=== PATIENT | female | born 1950 | race Asian ===

== ENCOUNTER 2017-07-28 12:40 | Emergency (ER) | payer OTHER ==
[2017-07-28] MEDS: KETOROLAC 30 MG INJ IV (13:43)
[2017-07-28 14:09] LABS: ADD MAN DIFF? NO
[2017-07-28] MEDS: SODIUM CHLORIDE 0.9% 1L BAG IV* (14:15)
[2017-07-28] MEDS: CEFTRIAXONE 1 GM/50 ML (PMX) 50 ML IVPB (14:15)
[2017-07-28 14:23] LABS: WHITE BLOOD COUNT 14.8 10^3/ul (4.8-10.8)
[2017-07-28 14:23] LABS: HEMATOCRIT 29.4 % (37.0-47.0); HEMOGLOBIN 9.9 g/dl (12.0-16.0); LYMPHOCYTES % 5.5 % (15.0-51.0); MEAN CORPUSCULAR HEMOGLOBIN 29.3 pg (29.0-33.0); MEAN CORPUSCULAR HGB CONC 33.7 g/dl (32.0-37.0); MEAN PLATELET VOLUME 9.1 fl (7.4-10.4); NEUTROPHILS % 84.6 % (39.0-77.0); PLATELET COUNT 182 10^3/UL (140-415); RED BLOOD COUNT 3.38 10^6/ul (4.20-5.40); RED CELL DISTRIBUTION WIDTH 12.3 % (11.5-14.5)
[2017-07-28 14:24] LABS: BASOPHILS % 0.3 % (0.0-2.0); MONOCYTES % 9.1 % (0.0-11.0)
[2017-07-28 14:27] LABS: ADD UMIC YES; UR ASCORBIC ACID NEGATIVE (NEGATIVE); UR BACTERIA FEW /HPF (NONE SEEN); UR BILIRUBIN (Dip) NEGATIVE (NEGATIVE); UR BLOOD (Dip) 1+ mg/dL (NEGATIVE); UR CLARITY SLIGHTLY CLOUDY (CLEAR); UR COLOR YELLOW (YELLOW); UR GLUCOSE (Dip) 3+ mg/dL (NEGATIVE); UR KETONES (Dip) NEGATIVE (NEGATIVE); UR LEUKOCYTE ESTERASE (Dip) TRACE Leu/ul (NEGATIVE); UR NITRITE (Dip) NEGATIVE (NEGATIVE); UR RBC 3 /HPF (0-5); UR SPECIFIC GRAVITY (Dip) 1.013 (1.003-1.030); UR TOTAL PROTEIN (Dip) 2+ mg/dl (NEGATIVE); UR UROBILINOGEN (Dip) NEGATIVE (NEGATIVE); UR WBC 46 /HPF (0-5)
[2017-07-28 14:35] LABS: ALANINE AMINOTRANSFERASE 25 IU/L (13-69); ALBUMIN 3.6 g/dl (3.3-4.9); ALKALINE PHOSPHATASE 93 IU/L (42-121); ANION GAP 14 (8-16); ASPARTATE AMINO TRANSFERASE 19 IU/L (15-46); BILIRUBIN,INDIRECT 0.6 mg/dl (0-1.1); BILIRUBIN,TOTAL 0.6 mg/dl (0.2-1.3); BLOOD UREA NITROGEN 23 mg/dl (7-20); CALCIUM 8.3 mg/dl (8.4-10.2); CARBON DIOXIDE 24 mmol/L (21-31); CHLORIDE 96 mmol/L (97-110); CREATININE 0.94 mg/dl (0.44-1.00); GLUCOSE 294 mg/dl (70-220); POTASSIUM 4.3 mmol/L (3.5-5.1); SODIUM 130 mmol/L (135-144); TOTAL PROTEIN 7.2 g/dl (6.1-8.1)
[2017-07-28 14:36] LABS: INR 1.07; PT RATIO 1.1
[2017-07-28 14:36] LABS: LACTIC ACID 2.6 mmol/L (0.5-2.0)
[2017-07-28 14:37] LABS: PARTIAL THROMBOPLASTIN TIME 33.3 Sec (25.0-35.0)
[2017-07-28] MEDS: ACETAMINOPHEN 500 MG TAB PO (16:42)
== END 2017-07-28 18:26 | disposition home or self-care (01) ==
LOC: E/R 12:40
DX: N39.0 Urinary tract infection, site not specified (principal); R65.20 Severe sepsis without septic shock; A41.9 Sepsis, unspecified organism
CPT/HCPCS: 36415; 71045; 80053; 81001; 83605; 85025; 85610; 85730; 87040; 87086; 96374; 99284-25

== ENCOUNTER 2018-07-11 22:54 | Inpatient (IN) | payer OTHER ==
[2018-07-12] MEDS ORDERED: GABAPENTIN 300 MG CAP PO
[2018-07-12] MEDS ORDERED: HYDROCODONE/APAP (5/325) TAB PO
[2018-07-12] MEDS ORDERED: DEXTROSE 50% 50 ML SYRINGE IV ×2 (01:00)
[2018-07-12] MEDS ORDERED: GLUCOSE GEL 15 GRAM TUBE BUCCAL (01:00)
[2018-07-12] MEDS ORDERED: GLUCOSE GEL 15 GRAM TUBE PO ×2 (01:00)
[2018-07-12] MEDS ORDERED: GLUCAGON 1 MG INJ IM (01:00)
[2018-07-12] MEDS: ACCU-CHEK XX (02:00)
[2018-07-12] MEDS: PANTOPRAZOLE (EC) 40 MG TAB PO (06:13)
[2018-07-12] MEDS: ONDANSETRON 4 MG INJ IV ×2 (06:13→15:55)
[2018-07-12] MEDS: ACETAMINOPHEN 325 MG TAB PO ×2 (06:14→15:34)
[2018-07-12] MEDS: PIPER-TAZO 3.375 GM IV (PMX) 100 ML IVPB ×3 (06:14→21:13)
[2018-07-12] MEDS: INSULIN ASPART [NOVOLOG] 3 ML PEN SC ×4 (08:00→21:07)
[2018-07-12 08:36] LABS: ADD MAN DIFF? NO
[2018-07-12 08:45] LABS: ABNORMAL IP MESSAGE 1; BASOPHIL # 0.1 10^3/ul (0.0-0.1); BASOPHILS % 0.2 % (0.0-2.0); HEMATOCRIT 26.8 % (37.0-47.0); LYMPHOCYTES # 0.8 10^3/ul (0.8-2.9); LYMPHOCYTES % 3.3 % (15.0-51.0); MEAN CORPUSCULAR HGB CONC 33.6 g/dl (32.0-37.0); MEAN CORPUSCULAR VOLUME 86.5 fl (82.0-101.0); MEAN PLATELET VOLUME 9.2 fl (7.4-10.4); MONOCYTE # 1.9 10^3/ul (0.3-0.9); MONOCYTES % 7.7 % (0.0-11.0); PLATELET COUNT 240 10^3/UL (140-415); RED CELL DISTRIBUTION WIDTH 12.8 % (11.5-14.5)
[2018-07-12 08:47] LABS: POSITIVE DIFF @See below
[2018-07-12 08:49] LABS: LACTIC ACID 1.6 mmol/L (0.5-2.0)
[2018-07-12 08:53] LABS: ANION GAP 9 (5-13); BLOOD UREA NITROGEN 21 mg/dl (7-20); CALCIUM 8.2 mg/dl (8.4-10.2); CARBON DIOXIDE 24 mmol/L (21-31); CHLORIDE 104 mmol/L (97-110); CREATININE 1.09 mg/dl (0.44-1.00); Estimated GFR 50 mL/min (>60); GLUCOSE 240 mg/dl (70-220); SODIUM 137 mmol/L (135-144)
[2018-07-12] MEDS: METOPROLOL 50 MG TAB PO (09:04)
[2018-07-12] MEDS: FISH OIL 1,000 MG CAP PO (09:05)
[2018-07-12] MEDS: FUROSEMIDE 20 MG TAB PO (09:05)
[2018-07-12] MEDS: ASPIRIN 81 MG TAB PO (09:05)
[2018-07-12] MEDS: LOSARTAN 50 MG TAB PO (09:05)
[2018-07-12] MEDS: SOD CHLORIDE 0.9% 1,000 ML IV (10:47)
[2018-07-12] MEDS ORDERED: ASPIRIN (EC) 81 MG TAB PO (12:00)
[2018-07-12 12:28] LABS: ADD UMIC YES; UR ASCORBIC ACID NEGATIVE (NEGATIVE); UR BACTERIA FEW /HPF (NONE SEEN); UR BILIRUBIN (Dip) NEGATIVE (NEGATIVE); UR BLOOD (Dip) NEGATIVE (NEGATIVE); UR CLARITY TURBID (CLEAR); UR COLOR STRAW (YELLOW); UR GLUCOSE (Dip) NEGATIVE (NEGATIVE); UR KETONES (Dip) NEGATIVE (NEGATIVE); UR LEUKOCYTE ESTERASE (Dip) NEGATIVE Leu/ul (NEGATIVE); UR NITRITE (Dip) NEGATIVE (NEGATIVE); UR RBC 5 /HPF (0-5); UR RENAL EPITHELIAL CELL FEW /HPF (NONE SEEN); UR SQUAMOUS EPITHELIAL CELL FEW /HPF (FEW); UR TOTAL PROTEIN (Dip) NEGATIVE (NEGATIVE); UR UROBILINOGEN (Dip) NEGATIVE (NEGATIVE); UR WBC 53 /HPF (0-5)
[2018-07-12] MEDS: ASPIRIN (EC) 81 MG TAB PO (13:07)
[2018-07-12 18:35] LABS: MAGNESIUM 1.7 mg/dl (1.7-2.5)
[2018-07-12 18:36] LABS: ANION GAP 8 (5-13); BLOOD UREA NITROGEN 22 mg/dl (7-20); CALCIUM 8.4 mg/dl (8.4-10.2); CARBON DIOXIDE 23 mmol/L (21-31); CHLORIDE 102 mmol/L (97-110); CREATININE 1.22 mg/dl (0.44-1.00); Estimated GFR 44 mL/min (>60); GLUCOSE 195 mg/dl (70-220); POTASSIUM 3.8 mmol/L (3.5-5.1); SODIUM 133 mmol/L (135-144)
[2018-07-12 18:44] LABS: PHOSPHORUS 2.4 mg/dl (2.5-4.9)
[2018-07-12] MEDS: ALBUTEROL/IPRATROPIUM (NEB) 3 ML AMP HHN (20:25)
[2018-07-12] MEDS: POTASSIUM CHLORIDE (SR) 20 MEQ TAB PO (20:40)
[2018-07-12] MEDS: ATORVASTATIN 20 MG TAB PO ×2 (20:40→20:41)
[2018-07-12] MEDS: GABAPENTIN 100 MG CAP PO (20:40)
[2018-07-12] MEDS: LATANOPROST 0.005% 2.5 ML OPH BOTH EYES ×2 (20:48→21:00)
[2018-07-12] MEDS: INSULIN GLARGINE [LANTus] (100 UNITS/ML) SYG SC (21:07)
[2018-07-12] MEDS: MAGNESIUM SULFATE 2 GM/50 ML 50 ML IVPB (21:30)
[2018-07-13] MEDS: ACETAMINOPHEN 325 MG TAB PO (02:48)
[2018-07-13] MEDS: ACCU-CHEK XX (02:51)
[2018-07-13] MEDS: PANTOPRAZOLE (EC) 40 MG TAB PO (05:52)
[2018-07-13] MEDS: PIPER-TAZO 3.375 GM IV (PMX) 100 ML IVPB ×3 (05:52→21:38)
[2018-07-13] MEDS: ASPIRIN (EC) 81 MG TAB PO (08:00)
[2018-07-13] MEDS: INSULIN ASPART [NOVOLOG] 3 ML PEN SC ×5 (08:00→21:01)
[2018-07-13] MEDS: LOSARTAN 50 MG TAB PO (08:01)
[2018-07-13] MEDS: METOPROLOL 50 MG TAB PO ×2 (08:01→20:48)
[2018-07-13] MEDS: ALBUTEROL/IPRATROPIUM (NEB) 3 ML AMP HHN ×4 (08:43→21:52)
[2018-07-13] MEDS: ASPIRIN 81 MG TAB PO (08:43)
[2018-07-13 11:39] LABS: ADD MAN DIFF? NO
[2018-07-13 11:45] LABS: ABNORMAL IP MESSAGE 1; BASOPHIL # 0.1 10^3/ul (0.0-0.1); BASOPHILS % 0.4 % (0.0-2.0); EOSINOPHILS % 0.2 % (0.0-7.0); HEMOGLOBIN 8.5 g/dl (12.0-16.0); LYMPHOCYTES # 1.6 10^3/ul (0.8-2.9); LYMPHOCYTES % 7.4 % (15.0-51.0); MEAN CORPUSCULAR HGB CONC 32.7 g/dl (32.0-37.0); MEAN CORPUSCULAR VOLUME 88.7 fl (82.0-101.0); MEAN PLATELET VOLUME 9.3 fl (7.4-10.4); MONOCYTE # 1.5 10^3/ul (0.3-0.9); MONOCYTES % 7.1 % (0.0-11.0); NEUTROPHIL # 17.9 10^3/ul (1.6-7.5); NEUTROPHILS % 83.7 % (39.0-77.0); PLATELET COUNT 223 10^3/UL (140-415); RED BLOOD COUNT 2.93 10^6/ul (4.20-5.40)
[2018-07-13 11:45] LABS: WHITE BLOOD COUNT 21.4 10^3/ul (4.8-10.8)
[2018-07-13 11:46] LABS: POSITIVE DIFF @See below
[2018-07-13 12:02] LABS: ANION GAP 8 (5-13); BLOOD UREA NITROGEN 19 mg/dl (7-20); CALCIUM 8.3 mg/dl (8.4-10.2); CARBON DIOXIDE 23 mmol/L (21-31); CHLORIDE 104 mmol/L (97-110); CREATININE 1.07 mg/dl (0.44-1.00); Estimated GFR 51 mL/min (>60); GLUCOSE 223 mg/dl (70-220); POTASSIUM 4.4 mmol/L (3.5-5.1); SODIUM 135 mmol/L (135-144)
[2018-07-13] MEDS: FUROSEMIDE 20 MG INJ IV (14:56)
[2018-07-13] MEDS ORDERED: DILTIAZEM 25 MG INJ IV (19:00)
[2018-07-13] MEDS: DIGOXIN 500 MCG INJ IV (20:06)
[2018-07-13] MEDS: ATORVASTATIN 20 MG TAB PO ×2 (20:47)
[2018-07-13] MEDS: LATANOPROST 0.005% 2.5 ML OPH BOTH EYES ×2 (20:47→20:48)
[2018-07-13] MEDS: GABAPENTIN 100 MG CAP PO (20:48)
[2018-07-13] MEDS: INSULIN GLARGINE [LANTus] (100 UNITS/ML) SYG SC (21:01)
[2018-07-13] MEDS: ENOXAPARIN 60 MG/0.6 ML SYG SC (21:02)
[2018-07-14] MEDS: DIGOXIN 500 MCG INJ IV (01:43)
[2018-07-14] MEDS ORDERED: ACCU-CHEK XX (02:00)
[2018-07-14] MEDS: ACCU-CHEK XX (02:50)
[2018-07-14] MEDS: PANTOPRAZOLE (EC) 40 MG TAB PO (05:30)
[2018-07-14] MEDS: PIPER-TAZO 3.375 GM IV (PMX) 100 ML IVPB ×3 (05:30→21:20)
[2018-07-14 06:28] LABS: ADD MAN DIFF? NO
[2018-07-14 06:37] LABS: WHITE BLOOD COUNT 15.6 10^3/ul (4.8-10.8)
[2018-07-14 06:37] LABS: ABNORMAL IP MESSAGE 1; BASOPHIL # 0.1 10^3/ul (0.0-0.1); BASOPHILS % 0.4 % (0.0-2.0); EOSINOPHILS # 0.1 10^3/ul (0.0-0.5); EOSINOPHILS % 0.6 % (0.0-7.0); HEMATOCRIT 28.4 % (37.0-47.0); HEMOGLOBIN 9.3 g/dl (12.0-16.0); LYMPHOCYTES # 2.1 10^3/ul (0.8-2.9); LYMPHOCYTES % 13.2 % (15.0-51.0); MEAN CORPUSCULAR HEMOGLOBIN 28.4 pg (29.0-33.0); MEAN CORPUSCULAR HGB CONC 32.7 g/dl (32.0-37.0); MEAN CORPUSCULAR VOLUME 86.6 fl (82.0-101.0); MEAN PLATELET VOLUME 9.2 fl (7.4-10.4); MONOCYTE # 1.6 10^3/ul (0.3-0.9); NEUTROPHIL # 11.7 10^3/ul (1.6-7.5); NEUTROPHILS % 75.3 % (39.0-77.0); PLATELET COUNT 266 10^3/UL (140-415); RED BLOOD COUNT 3.28 10^6/ul (4.20-5.40); RED CELL DISTRIBUTION WIDTH 12.9 % (11.5-14.5)
[2018-07-14 06:42] LABS: POSITIVE DIFF @See below
[2018-07-14 06:58] LABS: CHOL/HDL RATIO 4.1 RATIO; HDL CHOLESTEROL 29 mg/dl (35-98); LDL CHOLESTEROL,CALCULATED 59 mg/dl; TRIGLYCERIDES 164 mg/dl (0-149)
[2018-07-14 06:58] LABS: CHOLESTEROL 121 mg/dl (100-200)
[2018-07-14 07:01] LABS: MAGNESIUM 2.2 mg/dl (1.7-2.5)
[2018-07-14 07:01] LABS: PHOSPHORUS 2.7 mg/dl (2.5-4.9)
[2018-07-14 07:06] LABS: ANION GAP 10 (5-13); BLOOD UREA NITROGEN 14 mg/dl (7-20); CALCIUM 8.6 mg/dl (8.4-10.2); CARBON DIOXIDE 24 mmol/L (21-31); CHLORIDE 105 mmol/L (97-110); CREATININE 0.92 mg/dl (0.44-1.00); Estimated GFR > 60 mL/min (>60); GLUCOSE 140 mg/dl (70-220); POTASSIUM 3.9 mmol/L (3.5-5.1); SODIUM 139 mmol/L (135-144)
[2018-07-14] MEDS: ASPIRIN (EC) 81 MG TAB PO (08:00)
[2018-07-14] MEDS: METOPROLOL 50 MG TAB PO (08:02)
[2018-07-14] MEDS: LOSARTAN 50 MG TAB PO (08:03)
[2018-07-14] MEDS: ENOXAPARIN 60 MG/0.6 ML SYG SC ×2 (08:21→21:24)
[2018-07-14] MEDS: INSULIN ASPART [NOVOLOG] 3 ML PEN SC ×7 (08:21→21:37)
[2018-07-14] MEDS: ALBUTEROL/IPRATROPIUM (NEB) 3 ML AMP HHN ×4 (08:25→20:19)
[2018-07-14] MEDS: ATORVASTATIN 20 MG TAB PO (21:20)
[2018-07-14] MEDS: GABAPENTIN 100 MG CAP PO (21:20)
[2018-07-14] MEDS: METOPROLOL 25 MG TAB PO (21:21)
[2018-07-14] MEDS: LATANOPROST 0.005% 2.5 ML OPH BOTH EYES (21:21)
[2018-07-14] MEDS: INSULIN GLARGINE [LANTus] (100 UNITS/ML) SYG SC (21:23)
[2018-07-15 01:41] LABS: CREATINE KINASE 47 IU/L (23-200)
[2018-07-15 01:54] LABS: CK INDEX 1.1; CK-MB 0.52 ng/ml (0.0-2.4); TROPONIN-I < 0.012 ng/ml (0.000-0.120)
[2018-07-15] MEDS: ACCU-CHEK XX (02:00)
[2018-07-15] MEDS: PIPER-TAZO 3.375 GM IV (PMX) 100 ML IVPB ×2 (06:02→13:37)
[2018-07-15] MEDS: PANTOPRAZOLE (EC) 40 MG TAB PO (06:02)
[2018-07-15 06:11] LABS: ADD MAN DIFF? NO
[2018-07-15 06:15] LABS: WHITE BLOOD COUNT 9.5 10^3/ul (4.8-10.8)
[2018-07-15 06:15] LABS: BASOPHILS % 0.4 % (0.0-2.0); EOSINOPHILS # 0.1 10^3/ul (0.0-0.5); EOSINOPHILS % 1.4 % (0.0-7.0); HEMATOCRIT 26.1 % (37.0-47.0); HEMOGLOBIN 8.8 g/dl (12.0-16.0); LYMPHOCYTES # 2.1 10^3/ul (0.8-2.9); LYMPHOCYTES % 21.7 % (15.0-51.0); MEAN CORPUSCULAR HEMOGLOBIN 28.9 pg (29.0-33.0); MEAN CORPUSCULAR HGB CONC 33.7 g/dl (32.0-37.0); MEAN CORPUSCULAR VOLUME 85.9 fl (82.0-101.0); MEAN PLATELET VOLUME 9.3 fl (7.4-10.4); MONOCYTE # 1.2 10^3/ul (0.3-0.9); MONOCYTES % 12.6 % (0.0-11.0); NEUTROPHILS % 63.2 % (39.0-77.0); PLATELET COUNT 280 10^3/UL (140-415); RED BLOOD COUNT 3.04 10^6/ul (4.20-5.40); RED CELL DISTRIBUTION WIDTH 12.9 % (11.5-14.5)
[2018-07-15 06:41] LABS: CREATINE KINASE 43 IU/L (23-200)
[2018-07-15 06:42] LABS: MAGNESIUM 2.1 mg/dl (1.7-2.5)
[2018-07-15 06:42] LABS: PHOSPHORUS 3.7 mg/dl (2.5-4.9)
[2018-07-15 06:54] LABS: CK INDEX 0.8; CK-MB 0.33 ng/ml (0.0-2.4); TROPONIN-I < 0.012 ng/ml (0.000-0.120)
[2018-07-15 07:03] LABS: ANION GAP 8 (5-13); BLOOD UREA NITROGEN 10 mg/dl (7-20); CALCIUM 8.6 mg/dl (8.4-10.2); CARBON DIOXIDE 23 mmol/L (21-31); CHLORIDE 109 mmol/L (97-110); CREATININE 0.76 mg/dl (0.44-1.00); Estimated GFR > 60 mL/min (>60); GLUCOSE 129 mg/dl (70-220); POTASSIUM 3.8 mmol/L (3.5-5.1); SODIUM 140 mmol/L (135-144)
[2018-07-15] MEDS: INSULIN ASPART [NOVOLOG] 3 ML PEN SC ×7 (07:46→21:45)
[2018-07-15] MEDS: LOSARTAN 50 MG TAB PO (08:19)
[2018-07-15] MEDS: METOPROLOL 25 MG TAB PO ×2 (08:20→21:19)
[2018-07-15] MEDS: ASPIRIN (EC) 81 MG TAB PO (08:20)
[2018-07-15] MEDS: ENOXAPARIN 60 MG/0.6 ML SYG SC (08:26)
[2018-07-15] MEDS: ALBUTEROL/IPRATROPIUM (NEB) 3 ML AMP HHN ×4 (09:34→20:06)
[2018-07-15 12:27] LABS: CREATINE KINASE 52 IU/L (23-200)
[2018-07-15 12:37] LABS: CK INDEX 0.8; CK-MB 0.39 ng/ml (0.0-2.4); TROPONIN-I < 0.012 ng/ml (0.000-0.120)
[2018-07-15] MEDS: ERTAPENEM SODIUM 1 GM in SOD CHLORIDE 0.9% 100 ML IVPB (15:12)
[2018-07-15] MEDS: APIXABAN 5 MG TABLET PO (21:18)
[2018-07-15] MEDS: LATANOPROST 0.005% 2.5 ML OPH BOTH EYES (21:18)
[2018-07-15] MEDS: AMLODIPINE 5 MG TAB PO (21:18)
[2018-07-15] MEDS: ATORVASTATIN 20 MG TAB PO (21:19)
[2018-07-15] MEDS: GABAPENTIN 100 MG CAP PO (21:19)
[2018-07-15] MEDS: INSULIN GLARGINE [LANTus] (100 UNITS/ML) SYG SC (21:43)
[2018-07-16] MEDS: ACCU-CHEK XX (02:06)
[2018-07-16 06:14] LABS: ADD MAN DIFF? NO
[2018-07-16 06:15] LABS: WHITE BLOOD COUNT 9.5 10^3/ul (4.8-10.8)
[2018-07-16 06:15] LABS: BASOPHILS % 0.3 % (0.0-2.0); EOSINOPHILS # 0.1 10^3/ul (0.0-0.5); EOSINOPHILS % 1.3 % (0.0-7.0); HEMATOCRIT 27.7 % (37.0-47.0); HEMOGLOBIN 9.2 g/dl (12.0-16.0); LYMPHOCYTES # 1.9 10^3/ul (0.8-2.9); LYMPHOCYTES % 19.9 % (15.0-51.0); MEAN CORPUSCULAR HEMOGLOBIN 28.2 pg (29.0-33.0); MEAN CORPUSCULAR HGB CONC 33.2 g/dl (32.0-37.0); MEAN PLATELET VOLUME 8.9 fl (7.4-10.4); MONOCYTE # 1.3 10^3/ul (0.3-0.9); MONOCYTES % 13.9 % (0.0-11.0); NEUTROPHILS % 63.8 % (39.0-77.0); PLATELET COUNT 319 10^3/UL (140-415); RED BLOOD COUNT 3.26 10^6/ul (4.20-5.40); RED CELL DISTRIBUTION WIDTH 13.1 % (11.5-14.5)
[2018-07-16] MEDS: PANTOPRAZOLE (EC) 40 MG TAB PO (06:15)
[2018-07-16 06:16] LABS: ANION GAP 8 (5-13); BLOOD UREA NITROGEN 8 mg/dl (7-20); CALCIUM 9.1 mg/dl (8.4-10.2); CARBON DIOXIDE 25 mmol/L (21-31); CHLORIDE 107 mmol/L (97-110); CREATININE 0.75 mg/dl (0.44-1.00); Estimated GFR > 60 mL/min (>60); GLUCOSE 138 mg/dl (70-220); SODIUM 140 mmol/L (135-144)
[2018-07-16 06:27] LABS: HEMOGLOBIN A1C 9.4 % (0-5.9)
[2018-07-16] MEDS: INSULIN ASPART [NOVOLOG] 3 ML PEN SC ×4 (08:00→14:12)
[2018-07-16] MEDS: ALBUTEROL/IPRATROPIUM (NEB) 3 ML AMP HHN ×2 (10:18→13:51)
[2018-07-16] MEDS: APIXABAN 5 MG TABLET PO (10:28)
[2018-07-16] MEDS: METOPROLOL 25 MG TAB PO (10:29)
[2018-07-16] MEDS: AMLODIPINE 5 MG TAB PO (10:29)
[2018-07-16] MEDS: ASPIRIN (EC) 81 MG TAB PO (10:30)
[2018-07-16] MEDS: LOSARTAN 50 MG TAB PO (10:30)
[2018-07-16] MEDS: ERTAPENEM SODIUM 1 GM in SOD CHLORIDE 0.9% 100 ML IVPB (15:30)
== END 2018-07-16 17:20 | disposition home health service (06) | DRG 872 ==
LOC: 6WM 22:54
PROVIDERS: Internal Medicine Nephrology
DX: A41.9 Sepsis, unspecified organism (principal); N39.0 Urinary tract infection, site not specified; E11.40 Type 2 diabetes mellitus with diabetic neuropathy, unspecified; E78.5 Hyperlipidemia, unspecified; I10 Essential (primary) hypertension; B96.20 Unspecified Escherichia coli [E. coli] as the cause of diseases classified elsewhere; R05 Cough; Z79.4 Long term (current) use of insulin; Z79.82 Long term (current) use of aspirin; Z79.02 Long term (current) use of antithrombotics/antiplatelets
CPT/HCPCS: 71045; 74176; 76775; 80048; 80061; 81001; 82550; 82553; 82962; 83036; 83605; 83735; 84100; 84484; 85025; 87040-91; 87081; 87086; 93005; 93306; 94640; 94664